=== PATIENT | male | born 1950 | race Caucasian/White ===

== ENCOUNTER 2020-04-14 17:53 | Emergency (ER) | payer OTHER ==
[~2020-04-14] VITALS: Ht 182.9 cm; Wt 72.6 kg
[2020-04-14 18:52] LABS: HEMATOCRIT 37.8 % (42.0-52.0); HEMOGLOBIN 12.4 gm/dL (14.0-18.0); MCH 29.1 pg (26.0-34.0); MCHC 32.8 g/dL (28.0-37.0); MCV 88.9 fL (80.0-100.0); PLATELET COUNT 291 thou/uL (150-400); RBC 4.26 mil/uL (4.50-6.00); RDW 15.6 % (10.5-14.5); WBC 5.5 thou/uL (4.0-11.0)
[2020-04-14 18:56] LABS: ANION GAP 9 mmol/L (7-16); BUN 20 mg/dL (7-18); CALCIUM 8.2 mg/dL (8.5-10.1); CHLORIDE 100 mmol/L (98-107); CO2 25 mmol/L (21-32); CREATININE 0.8 mg/dL (0.7-1.3); GLUCOSE 88 mg/dL (74-106); POTASSIUM 4.5 mmol/L (3.5-5.1); SODIUM 134 mmol/L (136-145)
[2020-04-14 19:04] LABS: TROPONIN-I <0.06 ng/mL (<0.06)
[2020-04-14 19:24] LABS: ABSOLUTE NEUTROPHILS 2.8 thou/uL (1.4-8.2)
[2020-04-14 21:26] VITALS: BP 135/110
--- NOTE | 2020-04-15 07:43 | EKG ---
[facility] [place] [address] ELECTROCARDIOGRAM REPORT Name: SID ADAME Room #: DEP [facility]#: [id number] Admission: 04/14/20 Attend Phys: Discharge: 04/14/20 Date of : 52 Report #: [id number] THIS REPORT FOR: cc: Matheus Judd MD, Srinath MD Lundgren,Chase Dupree MD [facility] THIS REPORT FOR: //name// [facility] ED Test Date: 2020-04-14 Test Time: 18:04:09 Pat Name: SID ADAME Department: Room: Gender: Supervisor Rose Grading: [facility] : 1950 Requested By: Bari Duke Order Number: [id number] MD: Chase Goetz Measurements Intervals [place] Rate: 67 P: -24 MD: 212 QRS: -21 QRSD: 93 T: 53 QT: 403 QTc: 426 Interpretive Statements Sinus rhythm Borderline prolonged MD interval Borderline left axis deviation No previous ECG available for comparison Electronically Signed On 04-15-2020 7:42:48 CDT by Chase Goetz [email or web address] <ELECTRONICALLY SIGNED> By: Chase Goetz MD, FACC 04/15/20 0742 1804 180 Chase Goetz MD, [facility] /EPI
== END 2020-04-14 21:26 | disposition home or self-care (01) ==
LOC: ER 17:53
PROVIDERS: Emergency Medicine
DX: R07.89 Other chest pain (principal); I10 Essential (primary) hypertension; Z90.89 Acquired absence of other organs; Z87.891 Personal history of nicotine dependence; Z88.8 Allergy status to other drugs, medicaments and biological substances